=== PATIENT | female | born 1980 | race Caucasian/White ===

== ENCOUNTER → 2022-03-03 | Outpatient (CLI) | payer OTHER ==
[~2022-03-03] MED LIST: AMPH1CAP16 PO; CLOB60CR4; LAMO25TA4 PO; LEVO25TA5 PO; LEXA1TAB2 PO; LORA1TAB4 PO
== END ==
LOC: M LABSMTC 10:48
PROVIDERS: ATTEND Anesthesiology
DX: Z01.812 Encounter for preprocedural laboratory examination (principal); Z20.822 Contact with and (suspected) exposure to COVID-19

== ENCOUNTER 2022-03-08 12:14 | Day surgery (SDC) | payer OTHER ==
[~2022-03-08] VITALS: Ht 180.3 cm; Wt 84.4 kg
[~2022-03-08 12:14] MED LIST changes: +NS 1,000 ML IV ONE
[2022-03-08] MEDS ORDERED: propofoL 500 MG/50 ML VIAL As Ordered ONE (12:54)
[2022-03-08] MEDS ORDERED: fentaNYL 100 MCG/2 ML INJECTION As Ordered ONE (12:58)
[2022-03-08 13:40] VITALS: BP 117/67
== END 2022-03-08 13:47 | disposition home or self-care (01) ==
LOC: M OPP 12:14
PROVIDERS: ATTEND Internal Medicine Gastroenterology
DX: R19.4 Change in bowel habit (principal); K64.8 Other hemorrhoids; Z80.0 Family history of malignant neoplasm of digestive organs; K29.70 Gastritis, unspecified, without bleeding; R10.13 Epigastric pain; R11.2 Nausea with vomiting, unspecified; Z79.899 Other long term (current) drug therapy
CPT/HCPCS: 43239; 45380; 88305; J3010

== ENCOUNTER 2025-09-09 09:17 | Day surgery (SDC) | payer OTHER ==
[~2025-09-09] VITALS: Ht 180.3 cm; Wt 93.9 kg
[~2025-09-09 09:17] MED LIST changes: +ALL10TAB3 PO; +ESTR1PAT; +LAMO-18 PO; -LAMO25TA4 PO; +LEXA1TAB PO; +LIDOCAINE 2% 100 MG/5 ML SDV (FOR ANES.) As Ordered ONE; +LISD10CA PO; +LORA1TAB23 PO; -LORA1TAB4 PO; +LORA2TAB14 PO; +MAG100TA PO; -NS 1,000 ML IV ONE; +OMEP-173 PO; +PHEN37.511 PO
[2025-09-09 12:37] VITALS: TEMP 97.3
[2025-09-09 13:01] VITALS: BP 108/57; O2SAT 96
== END 2025-09-09 13:10 | disposition home or self-care (01) ==
LOC: M OPP 09:17
PROVIDERS: ATTEND Internal Medicine Gastroenterology
DX: K92.1 Melena (principal); K64.0 First degree hemorrhoids; K21.9 Gastro-esophageal reflux disease without esophagitis; E03.9 Hypothyroidism, unspecified; F90.9 Attention-deficit hyperactivity disorder, unspecified type; F43.10 Post-traumatic stress disorder, unspecified; Z79.899 Other long term (current) drug therapy; Z79.890 Hormone replacement therapy; Z90.710 Acquired absence of both cervix and uterus; Z90.722 Acquired absence of ovaries, bilateral